=== PATIENT | female | born 1995 | race Two or more races ===

== ENCOUNTER 2017-02-03 23:12 | Emergency (ER) | payer OTHER ==
[~2017-02-03] VITALS: Ht 162.6 cm; Wt 75.0 kg
[2017-02-03] MEDS ORDERED: SODIUM CHLORIDE FLUSH 10ML SYR IVF ONE (23:30)
[2017-02-03 23:46] LABS: PATH.CAST-FLAG NOT PRESENT; SPERM-FLAG NOT PRESENT; SRC-FLAG NOT PRESENT; XTAL-FLAG NOT PRESENT; YLC-FLAG NOT PRESENT
[2017-02-04 00:04] LABS: HEMATOCRIT 40.9 % (34.6-47.8); WHITE BLOOD COUNT 10.9 x10^3/uL (4.5-13.2)
[2017-02-04 00:17] LABS: BLOOD UREA NITROGEN 4 mg/dL (7-18)
[2017-02-04 01:34] VITALS: BP 118/62
== END 2017-02-04 02:12 | disposition home or self-care (01) ==
LOC: ED 23:59
DX: O99.351 Diseases of the nervous system complicating pregnancy, first trimester (principal); R55 Syncope and collapse
CPT/HCPCS: 36415; 76801; 80048; 81001; 82040; 84702; 85025; 87086; 93005; 99285